=== PATIENT | female | born 1975 ===

== ENCOUNTER 2016-10-08 17:01 | Emergency (ER) | payer OTHER ==
[2016-10-08 17:11] VITALS: BMI 35.6
[2016-10-08 17:17] VITALS: PULSE 68; O2SAT 98
--- NOTE | 2016-10-08 17:36 | C.PDOC ---
History Of Present Illness 41 yr old female presents to the ER with complaints of nasal congestion and dry cough for the past week. Patient reports [facility]. Patient denies fever, chills, chest pain, SOB , nausea, vomiting, headache, weakness or numbness. Time Seen by Provider: 10/08/16 17:24 Chief Complaint (Nursing): Cough, Cold, Congestion History Per: Patient History/Exam Limitations: no limitations Onset/Duration Of Symptoms: Days (week) Current Symptoms Are (Timing): Still Present Location Of Pain: None Sick Contacts (Context): None Past Medical History Reviewed: Historical Data, Nursing Documentation, Vital Signs Vital Signs: Last Vital Signs Temp 98.1 F 10/08/16 18:06 Pulse 68 10/08/16 18:06 Resp 18 10/08/16 18:06 BP 118/68 10/08/16 18:06 Pulse Ox 98 10/08/16 18:06 - Medical History PMH: Chronic Kidney Disease Surgical History: (2) Family History: States: No Known Family Hx - Social History Hx Alcohol Use: No Hx Substance Use: No - Immunization History Hx Tetanus Toxoid Vaccination: No Hx Influenza Vaccination: No Hx Pneumococcal Vaccination: No Review Of Systems Constitutional: Negative for: Fever, Chills ENT: Negative for: Nose Congestion Cardiovascular: Negative for: Chest Pain Respiratory: Positive for: Cough (Dry). Negative for: Shortness of Breath Gastrointestinal: Negative for: Nausea, Vomiting Neurological: Negative for: Weakness, Numbness, Headache Physical Exam - Physical Exam Appears: Well, Non-toxic, No Acute Distress, Other (occasional dry cough) Skin: Normal Color, Warm, Dry, No Rash Eye(s): bilateral: Normal Inspection Ear(s): Bilateral: Normal Nose: Discharge (nasal congestion B/L) Oral Mucosa: Moist, No Drooling Throat: Normal, No Erythema, No Exudate, No Drooling Neck: Normal, Normal ROM, Supple Cardiovascular: Rhythm Regular Respiratory: Normal Breath Sounds, No Stridor, No Wheezing Gastrointestinal/Abdominal: Normal Exam, Soft, No Tenderness Back: Normal Inspection Extremity: Normal ROM, No Pedal Edema Neurological/Psych: Oriented x3, Normal Speech ED Course And Treatment O2 Sat by Pulse Oximetry: 98 Pulse Ox Interpretation: Normal - Radiology CXR: Interpreted by Me, Viewed By Me CXR Interpretation: Yes: No Acute Disease Progress Note: On re-evaluation, pt is afebrile, hemodynamiclay stable. NOn- toxic. Tolerate Po well in ED. PulsEOx 98% RA. ENT: no acute findings. neck: (-) meningeals ign. Lungs: CTA B/L, BS equal B/L. Abd: benign, (-) guarding, ( -) rebound, (-) localized tenderness. Imaging review- normal study. Pt has clinical findings c/w URI sx, pt advised on course of ds. ref. to f/u with PMD in 2-3 days for re-evaluation. Return to ED if nay worsening or new changes. Medical Decision Making Medical Decision Making: PLAN: * CXR * Tessalon Perles PO * Prednisone PO Disposition Counseled Patient/Family Regarding: Studies Performed, Diagnosis, Need For Followup, Rx Given - Disposition Referrals: [facility] [Outside] Disposition: HOME/ ROUTINE Disposition Time: 17:57 Condition: STABLE Additional Instructions: Encourage fluids Take medication as prescribed Follow up with PMD in 2-3 days for re-evaluation. Return to ED if any worsening or new changes Prescriptions: Prednisone [Deltasone] 20 mg PO DAILY #3 tablet Benzonatate [Tessalon Perle] 100 mg PO TID #14 capsule Azithromycin [Zithromax] 250 mg PO DAILY #4 tab Instructions: Acute Bronchitis (ED) Print Language: MONTSERRATIAN - Clinical Impression Clinical Impression: Bronchitis - PA / SOFTWARE VALIDATION TECHNICIAN / Resident Statement MD/DO has reviewed & agrees with the documentation as recorded. - Scribe Statement The provider has reviewed the documentation as recorded by the Scribe Jennifer Noel All medical record entries made by the Veronicaibjuan carlos were at my direction and personally dictated by me. I have reviewed the chart and agree that the record accurately reflects my personal performance of the history, physical exam, medical decision making, and the department course for this patient. I have also personally directed, reviewed, and agree with the discharge instructions and disposition.
[2016-10-08 18:07] VITALS: BP 118/68; RESP 18; TEMP 98.1
--- NOTE | 2016-10-08 18:20 | RAD ---
HISTORY: Cough COMPARISON: No prior. TECHNIQUE: Chest PA and lateral FINDINGS: LUNGS: The lungs are well inflated and clear. PLEURA: No significant pleural effusion identified. No pneumothorax apparent. CARDIOVASCULAR: Normal. OSSEOUS STRUCTURES: No significant abnormalities. VISUALIZED UPPER ABDOMEN: Normal. OTHER FINDINGS: None. IMPRESSION: No active pulmonary disease.
== END 2016-10-08 18:08 | disposition home or self-care (01) ==
LOC: C.ER 17:01
DX: J40 Bronchitis, not specified as acute or chronic (principal)

== ENCOUNTER 2017-06-04 08:14 | Emergency (ER) | payer OTHER ==
[2017-06-04 08:21] VITALS: BMI 35.6
[2017-06-04] MEDS ORDERED: Naproxen 550 mg Tab PO STA (08:54)
[2017-06-04] MEDS ORDERED: Naproxen 550 mg Tab PO ONE (09:04)
[2017-06-04 12:00] VITALS: BP 105/73; PULSE 71; RESP 18; TEMP 98.2; O2SAT 98
--- NOTE | 2017-06-04 12:30 | C.PDOC ---
History Of Present Illness 42 year old female presents to the ER with a complaint of left leg pain since last night. Patient states she was dancing last night when she felt a tear to the left lower leg. Patient reports having pain with movement of the leg, she notes taking ibuprofen for the pain with minimal relief to pain. No change in sensation. No other trauma. Time Seen by Provider: 06/04/17 08:18 Chief Complaint (Nursing): Lower Extremity Problem/Injury History Per: Patient History/Exam Limitations: no limitations Onset/Duration Of Symptoms: Hrs Current Symptoms Are (Timing): Still Present Recent travel outside of the [place]: No - Ankle/Foot Description Of Injury: Other (Dancing) Currently Unable To: Bend Or Move (Due to pain) Past Medical History Reviewed: Historical Data, Nursing Documentation, Vital Signs Vital Signs: Last Vital Signs Temp 98.2 F 06/04/17 11:59 Pulse 71 06/04/17 11:59 Resp 18 06/04/17 11:59 BP 105/73 06/04/17 11:59 Pulse Ox 98 06/04/17 14:39 - Medical History PMH: Chronic Kidney Disease Surgical History: (2) Family History: States: Unknown Family Hx - Social History Hx Alcohol Use: No Hx Substance Use: No - Immunization History Hx Tetanus Toxoid Vaccination: No Hx Influenza Vaccination: No Hx Pneumococcal Vaccination: No Review Of Systems Musculoskeletal: Positive for: Leg Pain Neurological: Negative for: Weakness, Numbness Physical Exam - Physical Exam Appears: Non-toxic, No Acute Distress Skin: Normal Color, Warm, Dry Head: Atraumatic, Normacephalic Eye(s): bilateral: Normal Inspection, EOMI Nose: Normal Oral Mucosa: Moist Neck: Normal ROM, Supple Chest: Symmetrical Respiratory: No Accessory Muscle Use Extremity: No Normal ROM, Tenderness, No Calf Tenderness, Capillary Refill (<2 sec ), Other ((+) Indentation, tenderness, and swelling to left achilles tendon. Hinson test positive.) Pulses: Left Dorsalis Pedis: Normal, Right Dorsalis Pedis: Normal Neurological/Psych: Oriented x3, Normal Speech, Normal Sensation ED Course And Treatment O2 Sat by Pulse Oximetry: 98 (Room air) Pulse Ox Interpretation: Normal - CT Scan/US Lower Extremity MRI Other Rad Studies (CT/US): Read By Radiologist, Radiology Report Reviewed CT/US Interpretation: PROCEDURE: MRI Left Ankle. HISTORY: Pain. COMPARISON: None available. TECHNIQUE: Multiecho multiplanar sequences were performed through the left ankle without the use of intravenous contrast. FINDINGS: ANTERIOR EXTENSOR TENDONS: No acute tear or sprain identified. MEDIAL FLEXOR TENDONS: No acute tear or sprain identified. PERONEAL TENDONS: No acute tear or sprain identified. ANTERIOR INFERIOR TIBIOFIBULAR (SYNDESMOSIS): No acute tear or sprain identified. POSTERIOR INFERIOR TIBIOFIBULAR (SYNDESMOSIS): No acute tear or sprain identified. ANTERIOR TALOFIBULAR LIGAMENT: Limited acute sprain or partial tear identified with local trace fluid. POSTERIOR TALOFIBULAR LIGAMENT: Limited acute sprain or partial tear identified with local trace fluid. PLANTAR FASCIA: Normal. SINUS TARSI: Intrinsic signal in the sinus tarsus appears normal however there is a small fluid collection or effusion posterior to the subtalar joint. ACHILLES TENDON: There is complete disruption of the Achilles tendon with approximate 2.3 cm distraction of the proximal segment cephalad a small local fluid collection is appreciated. DELTOID LIGAMENT COMPLEX - DEEP: No acute tear or sprain identified. CALCANEOFIBULAR LIGAMENT: No acute tear or sprain identified. SPRING (PLANTAR CALCANEO-NAVICULAR) LIGAMENT: No acute tear or sprain identified. BONES: No fracture or bone contusion identified. CARTILAGE: Preserved. JOINT FLUID: Questionable synovial cyst or other fluid collection posterior to the subtalar joint. Normal otherwise. MUSCLES: Normal. OTHER FINDINGS: None . IMPRESSION : 1. Complete tear of the distal [place]'s tendon with approximate 2.3 cm proximal distraction. 2. Acute sprain or partial tear identified at the anterior and posterior talofibular ligaments. 3. No definite fracture or bone contusion identified. Progress Note: Case discuss with Dr. Graham, ortho front end driver, who ordered to have patient placed in posterior leg splint with crutches and to follow up with him at his office. Pt was given this information and whey department operator used to ensure understanding. Disposition - Disposition Referrals: [facility] [Outside] Servando Graham MD [Staff Provider] - Disposition: HOME/ ROUTINE Disposition Time: 12:28 Condition: GOOD Additional Instructions: Rest, ice, and follow up with ortho in 1-2 days. Prescriptions: Naproxen [Naprosyn] 1 tab PO BID PRN #25 tab PRN Reason: Pain traMADol [Ultram] 50 mg PO Q8 #20 tab Instructions: Achilles Tendon Rupture (ED) Forms: [facility] (Mohawk), Work Excuse - Clinical Impression Clinical Impression: Achilles tendon rupture - Scribe Statement The provider has reviewed the documentation as recorded by the Scribe Shilo Hinton All medical record entries made by the Scribe were at my direction and personally dictated by me. I have reviewed the chart and agree that the record accurately reflects my personal performance of the history, physical exam, medical decision making, and the department course for this patient. I have also personally directed, reviewed, and agree with the discharge instructions and disposition.
--- NOTE | 2017-06-04 13:14 | MRI ---
PROCEDURE: MRI Left Ankle HISTORY: Pain. COMPARISON: None available. TECHNIQUE: Multiecho multiplanar sequences were performed through the left ankle without the use of intravenous contrast. FINDINGS: ANTERIOR EXTENSOR TENDONS: No acute tear or sprain identified. MEDIAL FLEXOR TENDONS: No acute tear or sprain identified. PERONEAL TENDONS: No acute tear or sprain identified. ANTERIOR INFERIOR TIBIOFIBULAR (SYNDESMOSIS): No acute tear or sprain identified. POSTERIOR INFERIOR TIBIOFIBULAR (SYNDESMOSIS): No acute tear or sprain identified. ANTERIOR TALOFIBULAR LIGAMENT: Limited acute sprain or partial tear identified with local trace fluid. POSTERIOR TALOFIBULAR LIGAMENT: Limited acute sprain or partial tear identified with local trace fluid. PLANTAR FASCIA: Normal. SINUS TARSI: Intrinsic signal in the sinus tarsus appears normal however there is a small fluid collection or effusion posterior to the subtalar joint. ACHILLES TENDON: There is complete disruption of the Achilles tendon with approximate 2.3 cm distraction of the proximal segment cephalad a small local fluid collection is appreciated. DELTOID LIGAMENT COMPLEX - DEEP: No acute tear or sprain identified. CALCANEOFIBULAR LIGAMENT: No acute tear or sprain identified. SPRING (PLANTAR CALCANEO-NAVICULAR) LIGAMENT: No acute tear or sprain identified. BONES: No fracture or bone contusion identified. CARTILAGE: Preserved. JOINT FLUID: Questionable synovial cyst or other fluid collection posterior to the subtalar joint. Normal otherwise. MUSCLES: Normal. OTHER FINDINGS: None . IMPRESSION: 1. Complete tear of the distal [place]'s tendon with approximate 2.3 cm proximal distraction. 2. Acute sprain or partial tear identified at the anterior and posterior talofibular ligaments. 3. No definite fracture or bone contusion identified.
== END 2017-06-04 13:15 | disposition home or self-care (01) ==
LOC: C.ER 08:14
DX: S86.012A Strain of left Achilles tendon, initial encounter (principal); X58.XXXA Exposure to other specified factors, initial encounter; Y93.41 Activity, dancing

== ENCOUNTER 2017-06-11 14:10 | Emergency (ER) | payer OTHER ==
[2017-06-11 14:10] VITALS: BMI 31.2
--- NOTE | 2017-06-11 15:07 | C.PDOC ---
History Of Present Illness 42 yo female return to ED for re-evaluation of Left ankle pain after sustained injury on 06/04/17. Pt admits, was unable to find F/U ortho, was referred to [facility]. Pt also reports, ran out of pain medication. Otherwise, pt denies sensory or vascular deficit to Left leg, denies increase pain to left foot. From records: MPRESSION: 1. Complete tear of the distal Buster's tendon with approximate 2.3 cm proximal distraction. 2. Acute sprain or partial tear identified at the anterior and posterior talofibular ligaments. 3. No definite fracture or bone contusion identified. Pt also was seen at [facility] ED on 06/06/17 when was recommend to F/U as was told initially with . noted long leg posterior splint to left leg. Time Seen by Provider: 06/11/17 14:57 Chief Complaint (Nursing): Lower Extremity Problem/Injury History Per: Patient Past Medical History Reviewed: Historical Data, Nursing Documentation, Vital Signs Vital Signs: Last Vital Signs Temp 98.1 F 06/11/17 16:03 Pulse 69 06/11/17 16:03 Resp 16 06/11/17 16:03 BP 115/70 06/11/17 16:03 Pulse Ox 100 06/11/17 16:58 - Medical History PMH: Chronic Kidney Disease Surgical History: (2) Family History: States: Unknown Family Hx - Social History Hx Alcohol Use: No Hx Substance Use: No - Immunization History Hx Tetanus Toxoid Vaccination: No Hx Influenza Vaccination: No Hx Pneumococcal Vaccination: No Review Of Systems Except As Marked, All Systems Reviewed And Found Negative. Constitutional: Negative for: Fever, Chills ENT: Negative for: Throat Pain Musculoskeletal: Positive for: Leg Pain Skin: Negative for: Rash Neurological: Negative for: Weakness, Numbness, Altered Mental Status, Dizziness Physical Exam - Physical Exam Appears: Well, Non-toxic, No Acute Distress Skin: Normal Color, Warm, No Rash Extremity: Capillary Refill (less than 2sec to left ), Other (Long left leg posterior fiberglass splint, no neurovascular deficist to left foot.) Neurological/Psych: Oriented x3, Normal Speech, Normal Motor, Normal Sensation, Normal Reflexes ED Course And Treatment O2 Sat by Pulse Oximetry: 100 Progress Note: After my initial evaluation, Dr.Santos paged, case discussed and pt was referred to [facility] for further evaluation and treatment. [facility] resident was paged for consult. At 15:20, resident paged again, no answer. At 16:10, resident paged again. [facility] called, no resident available to asnwer. At 16:30, podiatry resident answered and at 16:40, pt was seen by [facility] resident . As per resident, case discussed with and discharge with outpt f/u at [facility] on Wednesday from 12 noon- 3 pm recommend. SPlint left unchanged, pt denies sensory or vascular deficist to Left leg, denies splint discomfort. Pt understand, stable for discharge and outpt f/u now. Disposition Counseled Patient/Family Regarding: Diagnosis, Need For Followup, Rx Given - Disposition Referrals: [facility] at [facility] [Outside] Disposition: HOME/ ROUTINE Disposition Time: 17:02 Condition: STABLE Additional Instructions: Ellie un seguimiento con la [facility] en [facility] el es 12 noon- 3-4 pm para mayor evaluacin y tratamiento volver a Emergencia si cualquier otro cambio nuevo Prescriptions: Ibuprofen [Motrin Tab] 600 mg PO Q6 #20 tab Instructions: Achilles Tendon Rupture (ED) Forms: [facility] (Romanian) Print Language: COOK ISLANDER - Clinical Impression Clinical Impression: Achilles rupture, left
--- NOTE | 2017-06-11 17:21 | CP.PCM.CON ---
History of Present Illness - History of Present Illness History of Present Illness: 42 year old female seen 8 days s/p Achilles tendon rupture. Pt was to follow up with orthopedist service, pt to be transferred to podiatric care per orthopedist , Dr. Graham. Pt presents to [facility] to receive referral to podiatry clinic. Pt reports no difficulty maintaining non-weightbearing status to left leg. Pt states pain, graded 2/10 to left leg is well controlled with pain medications. Past Patient History - Infectious Disease Hx of Infectious Diseases: None - Past Social History Smoking Status: Former Smoker - RENAL Hx Chronic Kidney Disease: Yes - PSYCHIATRIC Hx Substance Use: No - SURGICAL HISTORY Hx Surgeries: Yes Hx Section: Yes (x2 (2003,2009)) - ANESTHESIA Hx Anesthesia: Yes Hx Anesthesia Reactions: No Meds Allergies/Adverse Reactions: Allergies Allergy/AdvReac Type Severity Reaction Status Date / Time No Known Allergies Allergy Verified 06/11/17 14:52 Results - Vital Signs Recent Vital Signs: Last Vital Signs Temp 98.1 F 06/11/17 16:03 Pulse 69 06/11/17 16:03 Resp 16 06/11/17 16:03 BP 115/70 06/11/17 16:03 Pulse Ox 100 06/11/17 17:17 Assessment & Plan - Assessment and Plan (Free Text) Assessment: Left foot Achilles tendon complete rupture, 8 days s/p injury Plan: Pt seen and evaluated. Reviewed MRI results. Discussed with attending, Dr. Muñoz. Pt is stable. Refilled Ibuprofen and Ultram rx. Noted orthopedist has transferred pt to podiatry care, referral [facility] Wednesday06/14/17 in afternoon. [employer] translation service used to properly communicate with pt and relay followup instructions. - Date & Time Date: 06/11/17 Time: 17:00
[2017-06-11 17:32] VITALS: BP 121/84; PULSE 71; RESP 20; TEMP 97.9; O2SAT 98
== END 2017-06-11 17:35 | disposition home or self-care (01) ==
LOC: C.ER 14:10
DX: S86.012A Strain of left Achilles tendon, initial encounter (principal); X58.XXXA Exposure to other specified factors, initial encounter; N18.9 Chronic kidney disease, unspecified; Z87.891 Personal history of nicotine dependence

== ENCOUNTER 2017-08-09 11:46 | Emergency (ER) | payer OTHER ==
[2017-08-09 12:06] VITALS: BMI 34.2
[2017-08-09 12:11] VITALS: BP 116/79; PULSE 68; RESP 17; TEMP 98.5; O2SAT 99
== END 2017-08-09 15:40 | disposition left against medical advice (07) ==
LOC: C.ER 11:46
DX: Z02.89 Encounter for other administrative examinations (principal); M25.572 Pain in left ankle and joints of left foot

== ENCOUNTER 2018-11-12 04:53 | Emergency (ER) | payer SELFPAY ==
[2018-11-12 04:54] VITALS: BMI 34.2
[2018-11-12 05:05] VITALS: RESP 16
[2018-11-12] MEDS ORDERED: Sodium Chloride 0.9% 1,000 ML IV ONE (05:33)
[2018-11-12 05:51] LABS: BASO # 0.2 K/uL (0.0-0.2); BASO % 2.2 % (0.0-2.0); EOS # 0.2 K/uL (0.0-0.7); EOS % 1.6 % (0.0-4.0); HEMOGLOBIN 13.3 g/dL (11.0-16.0); LYMPH # 2.1 K/uL (1.0-4.3); LYMPH % 19.7 % (20.0-40.0); MEAN CELL VOLUME 88.3 fL (81.0-99.0); MEAN CORPUSCULAR HEMOGLOBIN 29.6 pg (27.0-31.0); MEAN CORPUSCULAR HGB CONC 33.5 g/dL (33.0-37.0); MEAN PLATELET VOLUME 8.3 fL (7.2-11.7); MONO # 0.7 K/uL (0.0-0.8); MONO % 6.8 % (0.0-10.0); NEUT # 7.4 K/uL (1.8-7.0); NEUT % 69.7 % (50.0-75.0); RBC 4.49 Mil/uL (3.80-5.20); RED CELL DISTRIBUTION WIDTH 14.2 % (11.5-14.5); SQUAMOUS EPITHIAL 2 /hpf (0-5); URINE BACTERIA OCC (<OCC); URINE BILIRUBIN NEGATIVE (NEGATIVE); URINE BLOOD NEGATIVE (NEGATIVE); URINE CLARITY Clear (Clear); URINE COLOR Yellow (YELLOW); URINE GLUCOSE (UA) NORMAL (Normal); URINE LEUKOCYTE ESTERASE NEG Leu/uL (Negative); URINE PROTEIN NEGATIVE (NEGATIVE); URINE UROBILINOGEN NORMAL mg/dL (0.2-1.0); WHITE BLOOD COUNT 10.6 K/uL (4.8-10.8)
[2018-11-12 05:57] LABS: HCG,QUALITATIVE URINE NEGATIVE (NEGATIVE)
[2018-11-12 05:59] LABS: ALB/GLOB RATIO 1.4 (1.0-2.1); ALT/SGPT 94 U/L (9-52); AST/SGOT 50 U/L (14-36); BLOOD UREA NITROGEN 11 mg/dL (7-17); CALCIUM 8.8 mg/dl (8.6-10.4); GFR NON-AFRICAN AMERICAN > 60; LIPASE 32 U/L (23-300)
--- NOTE | 2018-11-12 06:24 | C.PDOC ---
History Of Present Illness 43-year-old female presents to the ED for evaluation of crampy abdominal pain which began yesterday. Patient also reports having one episode of nausea and vomiting and one bowel movement since the onset of her symptoms. Patient denies fever, chills. Time Seen by Provider: 11/12/18 05:30 Chief Complaint (Nursing): Abdominal Pain History Per: Patient History/Exam Limitations: no limitations Onset/Duration Of Symptoms: Hrs Current Symptoms Are (Timing): Still Present Location Of Pain/Discomfort: Epigastric Quality Of Discomfort: "Pain" Associated Symptoms: denies: Fever, Chills Past Medical History Reviewed: Historical Data, Nursing Documentation, Vital Signs Vital Signs: Last Vital Signs Temp 97.7 F 11/12/18 05:01 Pulse 74 11/12/18 05:01 Resp 16 11/12/18 05:01 BP 112/73 11/12/18 05:01 Pulse Ox 96 11/12/18 05:01 Primary Care Provider: Non [facility] Provider, - Medical History PMH: Chronic Kidney Disease Surgical History: (2) Family History: States: Unknown Family Hx - Social History Hx Alcohol Use: No Hx Substance Use: No - Immunization History Hx Tetanus Toxoid Vaccination: No Hx Influenza Vaccination: No Hx Pneumococcal Vaccination: No Review Of Systems Constitutional: Negative for: Fever, Chills Gastrointestinal: Positive for: Abdominal Pain (epigastric ) Physical Exam - Physical Exam Appears: Non-toxic, No Acute Distress Skin: Normal Color, Warm, Dry Head: Atraumatic, Normacephalic Eye(s): bilateral: Normal Inspection Oral Mucosa: Moist Neck: Supple Chest: Symmetrical, No Deformity Cardiovascular: Rhythm Regular Respiratory: No Accessory Muscle Use Gastrointestinal/Abdominal: Soft, Tenderness (mild, epigastric ), No Guarding, No Rebound Extremity: Normal ROM, Capillary Refill (less than 2 seconds ) Neurological/Psych: Oriented x3, Normal Speech, Normal Cognition ED Course And Treatment - Laboratory Results Result Diagrams: 11/12/18 05:42 11/12/18 05:42 Lab Results: Total Bilirubin 0.6 mg/dL (0.2-1.3) 11/12/18 05:42 AST 50 U/L (14-36) H 11/12/18 05:42 ALT 94 U/L (9-52) H D 11/12/18 05:42 Alkaline Phosphatase 42 U/L (38-126) 11/12/18 05:42 Total Protein 6.9 g/dL (6.3-8.3) 11/12/18 05:42 Albumin 4.0 g/dL (3.5-5.0) 11/12/18 05:42 Globulin 2.9 gm/dL (2.2-3.9) 11/12/18 05:42 Albumin/Globulin Ratio 1.4 (1.0-2.1) 11/12/18 05:42 Lipase 32 U/L (23-300) 11/12/18 05:42 Urine Color Yellow (YELLOW) 11/12/18 05:42 Urine Clarity Clear (Clear) 11/12/18 05:42 Urine pH 7.0 (5.0-8.0) 11/12/18 05:42 Ur Specific Evangeline 1.012 (1.003-1.030) 11/12/18 05:42 Urine Protein Negative mg/dL (NEGATIVE) 11/12/18 05:42 Urine Glucose (UA) Normal mg/dL (Normal) 11/12/18 05:42 Urine Ketones Negative mg/dL (NEGATIVE) 11/12/18 05:42 Urine Blood Negative (NEGATIVE) 11/12/18 05:42 Urine Nitrate Negative (NEGATIVE) 11/12/18 05:42 Urine Bilirubin Negative (NEGATIVE) 11/12/18 05:42 Urine Urobilinogen Normal mg/dL (0.2-1.0) 11/12/18 05:42 Ur Leukocyte Esterase Neg Mg/uL (Negative) 11/12/18 05:42 Urine WBC (Auto) < 1 /hpf (0-5) 11/12/18 05:42 Urine RBC (Auto) < 1 /hpf (0-3) 11/12/18 05:42 Ur Squamous Epith Cells 2 /hpf (0-5) 11/12/18 05:42 Urine Bacteria Occ (<OCC) H 11/12/18 05:42 Urine HCG, Qual Negative (NEGATIVE) 11/12/18 05:42 Urine HCG, Qual Negative (NEGATIVE) 11/12/18 05:42 Lab Interpretation: Normal (ua neg.) Urine POC: Negative O2 Sat by Pulse Oximetry: 96 (on RA) Pulse Ox Interpretation: Normal - Radiology CXR: Interpreted by Me CXR Interpretation: Yes: No Acute Disease - Other Rad abd x 2 X-Ray: Interpreted by Me (+FOS) Interpretation: IMPRESSION: Unremarkable radiographs of chest and abdomen. No evidence of mechanical bowel obstruction. Progress Note: Bloodwork, urinalysis, and Obstructive Series Abdomen ordered. Magnesium Citrate PO, Toradol IVP and IV Fluids given. Medical Decision Making Medical Decision Making: acute on chronic contipation vs viral Disposition Doctor Will See Patient In The: Office Counseled Patient/Family Regarding: Studies Performed, Diagnosis - Disposition Referrals: [facility] [Outside] [email or web address] [Outside] [facility] [Outside] [facility] [[facility]] Disposition: HOME/ ROUTINE Disposition Time: 06:25 Condition: GOOD Additional Instructions: examenes normales abby un purgante ahora y re-evalua malone molestia del abdomen despues de usar el janneth 2-3 veces Cambios de dieta y ejercisio abby mas agua. Instructions: Constipation in Adults Forms: [email or web address] (Sinhala) Print Language: MALAY - Clinical Impression Clinical Impression: Abdominal pain, colicky - Scribe Statement The provider has reviewed the documentation as recorded by the Scribe (Emili Wren) Provider Attestation: All medical record entries made by the Scribe were at my direction and personally dictated by me. I have reviewed the chart and agree that the record accurately reflects my personal performance of the history, physical exam, medical decision making, and the department course for this patient. I have also personally directed, reviewed, and agree with the discharge instructions and disposition.
[2018-11-12] MEDS ORDERED: Magnesium Citrate Oral SOL (300 ml) PO ONE (06:27)
[2018-11-12] MEDS ORDERED: Magnesium Citrate Oral SOL (300 ml) ONE (06:32)
[2018-11-12 06:40] VITALS: BP 118/76; PULSE 82; TEMP 98.1
--- NOTE | 2018-11-12 11:46 | RAD ---
Date of service: 11/12/2018 PROCEDURE: Radiographs of the chest and abdomen (obstructive series) HISTORY: abd pain COMPARISON: No prior. TECHNIQUE: AP radiograph of the chest, with upright and supine radiographs of the abdomen. 3 views obtained. FINDINGS: CHEST: Lungs: Clear. Cardiovascular: Normal size heart. No pulmonary vascular congestion. No aortic atherosclerotic calcification present Pleura: No pleural fluid. No pneumothorax. Other findings: None. ABDOMEN AND PELVIS: Bowel: Unremarkable bowel gas pattern. No evidence of mechanical obstruction. Free air: None. Bones: Unremarkable. Other findings: None. IMPRESSION: Unremarkable radiographs of chest and abdomen. No evidence of mechanical bowel obstruction.
[2018-11-13 03:45] VITALS: O2SAT 96
== END 2018-11-12 06:41 | disposition home or self-care (01) ==
LOC: C.ER 04:53
DX: R10.84 Generalized abdominal pain (principal)
CPT/HCPCS: 74022; 80053; 81001; 83690; 84703; 85025; 96361; 96374; 99284; J1885; J7030